=== PATIENT | male | born 1965 | race Caucasian/White ===

== ENCOUNTER 2018-09-24 22:22 | Emergency (ER) | payer MEDICARE, OTHER ==
[~2018-09-24] VITALS: Ht 182.9 cm; Wt 99.8 kg
[2018-09-24] MEDS ORDERED: ONDANSETRON PF 4 MG/2 ML VIAL. IV ONE (23:00)
[2018-09-24 23:17] LABS: BASO % 0 % (0-3); EOS # 0.1 x10^3/uL (0.0-0.7); EOS % 1 % (0-3); HEMATOCRIT 41.5 % (39.0-53.0); HEMOGLOBIN 14.2 g/dL (13.0-17.5); LYMPH # 0.7 x10^3/uL (1.0-4.8); LYMPH % 4 % (24-48); MEAN CORPUSCULAR HEMOGLOBIN 33 pg (25-35); MEAN CORPUSCULAR HGB CONC 34 g/dL (31-37); MEAN CORPUSCULAR VOLUME 95 fL (79-100); MONO # 1.7 x10^3/uL (0.0-1.1); MONO % 10 % (0-9); NEUT % 85 % (31-73); PLATELET COUNT 161 x10^3/uL (140-400); RED BLOOD COUNT 4.35 x10^6/uL (4.30-5.70); RED CELL DISTRIBUTION WIDTH 13.2 % (11.5-14.5); WHITE BLOOD COUNT 16.6 x10^3/uL (4.0-11.0)
[2018-09-24 23:25] LABS: CALCIUM 9.3 mg/dL (8.5-10.1); CREATININE 1.2 mg/dL (0.7-1.3); GFR 62.9; POTASSIUM 4.6 mmol/L (3.5-5.1)
[2018-09-24 23:31] LABS: BILIRUBIN,URINE SMALL (NEG); CLARITY,URINE CLEAR; COLOR,URINE YELLOW; NITRITE,URINE NEGATIVE (NEG); PH,URINE 5.5; PROTEIN,URINE NEGATIVE (NEG-TRACE); UROBILINOGEN,URINE 0.2 mg/dL (0.2 mg/dL)
[2018-09-24 23:31] LABS: ALBUMIN 3.5 g/dL (3.4-5.0); ALBUMIN/GLOBULIN RATIO 0.9 (1.0-1.7); TOTAL BILIRUBIN 0.4 mg/dL (0.2-1.0); TOTAL PROTEIN 7.2 g/dL (6.4-8.2)
[2018-09-24 23:33] LABS: % BANDS 19 % (0-9); % EOS 1 % (0-5); % LYMPHS 4 % (24-48); % METAS 1 % (0-0); % MONOS 9 % (0-10); % SEGS 66 % (35-66); PLT ESTIMATE ADEQUATE (ADEQUATE); TOXIC GRANULATION SLIGHT
[2018-09-24 23:40] LABS: BACTERIA,URINE FEW /HPF (0-FEW); HYALINE CASTS, URINE MANY /HPF; RBC,URINE OCC /HPF (0-2); SQUAMOUS EPITHELIAL CELL,UR FEW /LPF
[2018-09-25] MEDS ORDERED: IOHEXOL 300 MG/ML 100ML VIAL. IV ONE (00:30)
[2018-09-25] MEDS ORDERED: CONTRAST GIVEN. MC PRN (00:30)
[2018-09-25 01:30] VITALS: BP 104/63
[2018-09-25] MEDS ORDERED: ONDA4TAB7 PO (01:37)
--- NOTE | 2018-09-25 01:37 | PHYS DOC ---
Past Medical History Past Medical History: Anemia, Constipation, Depression, GERD, Hypothyroid, Schizophrenia, Other Additional Past Medical Histor: Psychosis, Insomnia, Dysphagia, Extrapyramidal disorder, Mood disorder Past Surgical History: Other Additional Past Surgical Histo: Tracheostomy and removal, Colostomy and take down Additional Information: 1/2ppd smoker Alcohol Use: None Drug Use: None Adult General Chief Complaint Chief Complaint: NAUSEA/VOMITING/DIARRHA HPI HPI Patient is a 53 year old halfway/rehabilitation patient with history of colostomy with takedown who presents with acute onset nausea vomiting and diarrhea after eating dinner 2 hours prior to ED arrival. Symptoms have since resolved. Patient reports dull upper abdominal pain and tenderness. No fever chills or sweats. Denies history of bowel obstructions. No flank or back pain. No history of kidney stones. No other acute symptoms or complaints[] Review of Systems Review of Systems He is symptoms as per history of present illness. All other review symptoms are negative. All other systems were reviewed and found to be within normal limits, except as documented in this note. Current Medications Current Medications Current Medications Medications (Trade) Dose Ordered Sig/Jagjit Start Time Stop Time Status Last Admin Dose Admin Info (CONTRAST GIVEN -- Rx MONITORING) 1 each PRN DAILY PRN 09/25/18 00:30 09/27/18 00:29 Iohexol (Omnipaque 300 Mg/ml) 75 ml 1X ONCE 09/25/18 00:30 09/25/18 00:31 DC 09/25/18 00:35 75 ML Ondansetron HCl (Zofran) 4 mg 1X ONCE 09/24/18 23:00 09/24/18 23:01 DC Allergies Allergies Allergies Coded Allergies Type Severity Reaction Last Updated Verified No Known Drug Allergies 09/24/18 No Physical Exam Physical Exam Constitutional: Well developed, well nourished, shallow, poor hygiene,. [] HENT: Normocephalic, atraumatic, bilateral external ears normal, oropharynx moist, no oral exudates, nose normal. [] Eyes: PERRLA, EOMI, conjunctiva normal, no discharge. [] Neck: Normal range of motion, no tenderness, supple, no stridor. [] Cardiovascular:Heart rate regular rhythm, no murmur [] Lungs & Thorax: Bilateral breath sounds clear to auscultation [] Abdomen: Bowel sounds normal, soft, epigastric pain, tenderness no distention, normal bowel sounds,. [] Skin: Warm, dry, no erythema, no rash. [] Back: No tenderness. [] Extremities: No tenderness, no cyanosis, no clubbing, ROM intact, no edema. [] Neurologic: Alert and oriented X 3, normal motor function, normal sensory function, no focal deficits noted. [] Psychologic: Affect normal, judgement normal, mood normal. [] Current Patient Data Vital Signs Vital Signs Date Time Temp Pulse Resp B/P (MAP) Pulse Ox O2 Delivery O2 Flow Rate FiO2 09/25/18 00:00 66 98/68 (78) Nasal Cannula 1.0 09/24/18 23:30 95 09/24/18 22:22 98.3 19 98.3 Lab Values Laboratory Tests Test 09/24/18 23:05 09/24/18 23:20 White Blood Count 16.6 x10^3/uL (4.0-11.0) H Red Blood Count 4.35 x10^6/uL (4.30-5.70) Hemoglobin 14.2 g/dL (13.0-17.5) Hematocrit 41.5 % (39.0-53.0) Mean Corpuscular Volume 95 fL (79-100) Mean Corpuscular Hemoglobin 33 pg (25-35) Mean Corpuscular Hemoglobin Concent 34 g/dL (31-37) Red Cell Distribution Width 13.2 % (11.5-14.5) Platelet Count 161 x10^3/uL (140-400) Neutrophils (%) (Auto) 85 % (31-73) H Lymphocytes (%) (Auto) 4 % (24-48) L Monocytes (%) (Auto) 10 % (0-9) H Eosinophils (%) (Auto) 1 % (0-3) Basophils (%) (Auto) 0 % (0-3) Neutrophils # (Auto) 14.0 x10^3/uL (1.8-7.7) H Lymphocytes # (Auto) 0.7 x10^3/uL (1.0-4.8) L Monocytes # (Auto) 1.7 x10^3/uL (0.0-1.1) H Eosinophils # (Auto) 0.1 x10^3/uL (0.0-0.7) Basophils # (Auto) 0.0 x10^3/uL (0.0-0.2) Segmented Neutrophils % 66 % (35-66) Band Neutrophils % 19 % (0-9) H Lymphocytes % 4 % (24-48) L Monocytes % 9 % (0-10) Eosinophils % 1 % (0-5) Metamyelocytes % 1 % (0-0) H Toxic Granulation Slight Platelet Estimate Adequate (ADEQUATE) Sodium Level 139 mmol/L (136-145) Potassium Level 4.6 mmol/L (3.5-5.1) Chloride Level 103 mmol/L (98-107) Carbon Dioxide Level 26 mmol/L (21-32) Anion Gap 10 (6-14) Blood Urea Nitrogen 17 mg/dL (8-26) Creatinine 1.2 mg/dL (0.7-1.3) Estimated GFR (Cockcroft-Gault) 62.9 BUN/Creatinine Ratio 14 (6-20) Glucose Level 130 mg/dL (70-99) H Calcium Level 9.3 mg/dL (8.5-10.1) Total Bilirubin 0.4 mg/dL (0.2-1.0) Aspartate Amino Transferase (AST) 17 U/L (15-37) Alanine Aminotransferase (ALT) 16 U/L (16-63) Alkaline Phosphatase 58 U/L (46-116) Troponin I Quantitative < 0.017 ng/mL (0.000-0.055) Total Protein 7.2 g/dL (6.4-8.2) Albumin 3.5 g/dL (3.4-5.0) Albumin/Globulin Ratio 0.9 (1.0-1.7) L Urine Collection Type Void Urine Color Yellow Urine Clarity Clear Urine pH 5.5 Urine Specific [place] 1.020 Urine Protein Negative mg/dL (NEG-TRACE) Urine Glucose (UA) Negative mg/dL (NEG) Urine Ketones (Stick) Trace mg/dL (NEG) Urine Blood Negative (NEG) Urine Nitrite Negative (NEG) Urine Bilirubin Small (NEG) Urine Urobilinogen Dipstick 0.2 mg/dL (0.2 mg/dL) Urine Leukocyte Esterase Small (NEG) Urine RBC Occ /HPF (0-2) Urine WBC 5-10 /HPF (0-4) Urine Squamous Epithelial Cells Few /LPF Urine Bacteria Few /HPF (0-FEW) Urine Hyaline Casts Many /HPF Urine Mucus Marked /LPF Laboratory Tests 09/24/18 23:05 Laboratory Tests 09/24/18 23:05 EKG EKG [] Radiology/Procedures Radiology/Procedures [CT abdomen pelvis: No acute findings per radiology report] Course & Med Decision Making Course & Med Decision Making Pertinent Labs and Imaging studies reviewed. (See chart for details) [Nausea and vomiting resolved prior to ED. Afebrile. To be septic. Recommend supportive care, watchful waiting and close PCP follow-up.] Dragon Disclaimer Dragon Disclaimer This electronic medical record was generated, in whole or in part, using a voice recognition dictation system. Departure Departure Impression: Primary Impression: Nausea vomiting and diarrhea Disposition: 05 TRANSFER OTHER Condition: STABLE Referrals: SVETLANA MOORE MD (PCP) Patient Instructions: Nausea and Vomiting, [id number] Additional Instructions: Drink clear liquids only for the next 6-12 hours, then increase to bland diet as tolerated. Take nausea medication as directed. Return to the ED if new or worsening symptoms. Scripts Ondansetron Hcl (ZOFRAN) 4 Mg Tablet 1 TAB PO Q6HRS, #10 TAB 0 Refills Prov: BHARGAVI PRESSLEY DO 09/25/18 BHARGAVI PRESSLEY DO Sep 25, 2018 01:37
--- NOTE | 2018-09-25 03:17 | RAD ---
CT abdomen pelvis with contrast dated 09/25/2018. No comparison available. Clinical data indication: Abdominal pain and vomiting. TECHNIQUE: Contiguous axial imaging the abdomen and pelvis performed after the intravenous administration of iodinated contrast. No oral contrast administered. One or more of the following individualized dose reduction techniques were utilized for this examination: 1. Automated exposure control 2. Adjustment of the mA and/or kV according to patient size 3. Use of iterative reconstruction technique. FINDINGS: Limited images of lung bases show patchy and groundglass opacity in the lower lobes, left greater than right. Heart size is mildly enlarged. No significant pleural or pericardial effusion. Liver, spleen, pancreas, adrenal glands, gallbladder and kidneys are unremarkable. No hydronephrosis. There is a 4 mm calcific stone at the lower pole left kidney. Unopacified GI tract normal in caliber and contour. No focal bowel wall thickening. There are a few scattered diverticula throughout the colon. No paracolonic inflammatory changes. The appendix is normal in caliber. No ascites or lymphadenopathy. Abdominal aorta normal in caliber. Small umbilical hernia containing only fat. Images of pelvis show mild diffuse wall thickening of the urinary bladder. Prostate gland normal in size. No free fluid or lymphadenopathy. Bone windows show no acute findings. Mild multilevel spondylosis. IMPRESSION: 1. No acute abnormality of abdomen or pelvis. Normal appendix. 2. Left-sided nephrolithiasis, nonobstructive. 3. Diverticulosis with no evidence of acute diverticulitis. 4. Patchy bibasilar airspace disease, atelectasis versus pneumonia. 5. Mild diffuse wall thickening of the urinary bladder, nonspecific. Consider acute or chronic cystitis. Electronically signed by: Tong Rick MD (09/25/2018 3:14 AM) [facility]
--- NOTE | 2018-09-25 03:18 | RAD ---
Abdominal Series dated 09/24/2018. No comparison available. Clinical Indication: Abdominal pain. Findings: Single upright PA view the chest shows normal heart and mediastinal contours. Mild patchy increased density at both lung bases, left greater than right. No apparent pleural effusion or pneumothorax. Flat and upright views of the abdomen show nondilated gas filled loops of bowel. No air-fluid level on the upright view. No abnormal calcifications are identified. There is no evidence of pneumoperitoneum. Impression chest: Mild patchy bibasilar airspace disease, atelectasis versus pneumonia. Impression abdomen: Non-obstructive bowel gas pattern. Electronically signed by: Tong Rick MD (09/25/2018 3:15 AM) [id number]
[2018-09-25] MEDS ORDERED: IOHEXOL 300 MG/ML 100ML VIAL. ONE (04:46)
--- NOTE | 2018-09-25 05:55 | EKG ---
[facility] [address] [place] [address] Test Date: 2018-09-24 Test Time: 22:48:50 Pat Name: CALVIN ROBERTS Department: Room: Gender: M Coating Operator: : [id number] Requested By: BHARGAVI PRESSLEY Order Number: [id number] Reading MD: Measurements Intervals [place] Rate: 70 P: 11 SD: 138 QRS: -25 QRSD: 86 T: 60 QT: 374 QTc: 407 Interpretive Statements SINUS RHYTHM LEFTWARD AXIS OTHERWISE NORMAL ECG RI6.01 No previous ECG available for comparison
== END 2018-09-25 03:00 | disposition home or self-care (01) ==
LOC: ER 22:22
DX: R11.2 Nausea with vomiting, unspecified (principal); R19.7 Diarrhea, unspecified; R10.13 Epigastric pain; F32.9 Major depressive disorder, single episode, unspecified; K21.9 Gastro-esophageal reflux disease without esophagitis; E03.9 Hypothyroidism, unspecified; F17.200 Nicotine dependence, unspecified, uncomplicated; Z93.3 Colostomy status; Z93.0 Tracheostomy status
CPT/HCPCS: 36415; 74022; 74177; 80053; 81001; 84484; 85007; 85025; 87086; 93005; 99285; Q9967